=== PATIENT | male | born 1950 | race Two or more races ===

== ENCOUNTER 2016-12-13 12:04 | Emergency (ER) | payer MEDICARE, OTHER ==
[2016-12-13 13:36] LABS: ABSOLUTE NEUTROPHIL COUNT 5.4 K/mm3 (1.8-7.7); BASO % 0.1 % (0.2-1.0); EOS # 0.1 (0.0-0.5); HEMATOCRIT 48.6 % (32.0-52.0); HEMOGLOBIN 16.6 gm/l (14.0-18.0); IMM NEUT% 0.1 % (0-1); LYMPH # 0.9 (1.0-4.8); LYMPH % 12.5 % (15-45); MEAN CELL VOLUME 89.5 fl (80.0-94.0); MEAN CORPUSCULAR HEMOGLOBIN 30.6 pg (27.0-31.0); MEAN CORPUSCULAR HGB CONC 34.2 g/dl (33.0-37.0); MEAN PLATELET VOLUME 10.7 fl (7.4-10.4); MONO # 0.6 (0.0-0.8); MONO % 8.2 % (4-12); NEUT % 78.1 % (43-75); PLATELET COUNT 165 K/mm3 (130-400); RED CELL DISTRIBUTION WIDTH 13.4 % (11.5-14.5)
[2016-12-13 14:15] LABS: ALB/GLOB RATIO 1.5 (>1.0); ALBUMIN 4.8 gm/dL (3.5-5.7); CALCIUM 9.3 mg/dL (8.6-10.3)
== END 2016-12-13 14:51 | disposition home or self-care (01) ==
LOC: ED 12:04
DX: B02.9 Zoster without complications (principal); M25.511 Pain in right shoulder; I10 Essential (primary) hypertension